=== PATIENT | male | born 1960 | race Caucasian/White ===

== ENCOUNTER 2019-11-04 11:38 | Outpatient (CLI) | payer OTHER, SELFPAY ==
--- NOTE | ~2019-11-04 | XR_ITS ---
EXAMINATION: XR ankle LT min 3V DATE: 11/04/2019 12:11 INDICATION: Left ankle pain TECHNIQUE: Anteroposterior, lateral, mortise, and additional oblique view of the ankle were obtained. COMPARISON: None. FINDINGS: Ankle soft tissue swelling is present. There is no fracture, dislocation, or subluxation. T he joint spaces are normal. IMPRESSION: 1. Soft tissue swelling without acute osseous abnormality. Reviewed, dictated and finalized at location A.
== END 2019-11-04 11:39 | disposition home or self-care (01) ==
LOC: ANHIMG 11:50
PROVIDERS: PCP Family Medicine Adolescent Medicine; Visit Provider Family Medicine Adolescent Medicine
DX: S99.912A Unspecified injury of left ankle, initial encounter (principal); X58.XXXA Exposure to other specified factors, initial encounter; M79.89 Other specified soft tissue disorders
CPT/HCPCS: 73610

== ENCOUNTER 2021-12-11 00:51 | Day surgery (SDC) | payer BC, SELFPAY ==
[2021-11-27 14:07] VITALS: BMI 25.9
--- NOTE | 2021-12-11 08:09 | WPDANESEPPF ---
Anes - Initial Pre Proc Eval Procedure: Operation Date: 12/11/21 08:30 Proposed Procedures p Screening Colonoscopy - Stan Montana MD Date/Time: 12/11/21 08:09 Surgeon: Stan Montana MD Pre Op Diagnosis: neoplasm screening Patient Data Age: 61 Gender: M Height: 1.78 m Weight: 80.8 kg Allergies Allergy/AdvReac Type Severity Reaction Status Date / Time erythromycin base Allergy Severe Hives Verified 12/11/21 07:44 Penicillins Allergy Severe Hives Verified 12/11/21 07:44 Home Medications Medication Instructions Recorded Confirmed Type cetirizine 10 mg tablet 10 mg PO DAILY 10/02/21 11/27/21 History Patient hx anesthesia problems: none Family hx anesthesia problems: none Results Review: All pre-operative results and documents have been reviewed as part of the pre-operative evaluation. FORMERLY [facility], [facility] Surgical History Surgical History (Updated 09/28/21 @ 12:49 by Thomas Shirley MD) History of inguinal hernia repair History of tonsillectomy and adenoidectomy Family History Family History (Updated 10/02/21 @ 08:54 by Martita Roland MA) Grandparent Acute myocardial infarction Mother Breast cancer Sibling Breast cancer Father Heart disease Social History Social History (Updated 10/02/21 @ 08:55 by Martita Roland MA) Smoking status: Never smoker Second hand tobacco smoke exposure: No Alcohol intake: current Drinks per week: 2 Alcohol use details: Occasionally Substance use: never Substance use type: does not use Living arrangements: with family Gender identity (if verbalized by the patient): Male Sexual Orientation (if Verbalized by the Patient): Straight or Heterosexual Spiritual care concerns: No Agree to blood products: Yes Anes - Eval Final PreProcedure Day of Procedure 12/11/21 08:09 Patient weight: normal Heart: regular rate and rhythm Lungs: clear to auscultation and normal air movement Airway: Mallampati scale class II Neurological: alert and oriented Last oral intake: >/= 8 hours ASA classification: I Emergent: no Anesthetic plan: proceed Anesthesia type and monitoring: general GIVS Results Review: All pre-operative results and documents have been reviewed as part of the pre-operative evaluation. Informed Consent: The patient's anesthetic plan and its attendant risks and benefits were discussed with the patient/family/POA. Questions were solicited and answers provided to the satisfaction of the patient/family/POA.
[2021-12-11] MEDS: LACTATED RINGERS 1,000 ML 150 ML IV CONT (08:14)
[2021-12-11 08:15] VITALS: BP 118/77; PULSE 59; RESP 18; TEMP 36.1; O2SAT 100
--- NOTE | 2021-12-11 08:15 | WPDGICN ---
Assessment and Plan Assessment and plan (1) Encounter for screening colonoscopy: Code(s): Z12.11 - Encounter for screening for malignant neoplasm of colon Status: Acute Assessment and Plan: Patient presents for screening colonoscopy. Appears to be at average risk for colon polyps. Further recommendations will be given after endoscopy. GI Consult Note Consult date/time: 12/11/21 08:15 Reason for consult: Neoplasia screening. HPI: Meng Diego is a 61 year old male Presents for screening colonoscopy. Patient's current weight appetite and bowel movements are normal. He denies abdominal pain. Patient has had no bleeding. Family history is noncontributory. Patient presents today for neoplasia screening colonoscopy. Review of Systems Review of Systems: Review of systems noncontributory. FORMERLY [facility] Surgical History Surgical History (Updated 09/28/21 @ 12:49 by Thomas Shirley MD) History of inguinal hernia repair History of tonsillectomy and adenoidectomy Family History Family History (Updated 10/02/21 @ 08:54 by Martita Roland MA) Grandparent Acute myocardial infarction Mother Breast cancer Sibling Breast cancer Father Heart disease Social History Social History (Updated 10/02/21 @ 08:55 by Martita Roland MA) Smoking status: Never smoker Second hand tobacco smoke exposure: No Alcohol intake: current Drinks per week: 2 Alcohol use details: Occasionally Substance use: never Substance use type: does not use Living arrangements: with family Gender identity (if verbalized by the patient): Male Sexual Orientation (if Verbalized by the Patient): Straight or Heterosexual Spiritual care concerns: No Agree to blood products: Yes Meds Home Medications and Allergies Home Medications Medication Instructions Recorded Confirmed Type cetirizine 10 mg tablet 10 mg PO DAILY 10/02/21 11/27/21 History Allergies Allergy/AdvReac Type Severity Reaction Status Date / Time erythromycin base Allergy Severe Hives Verified 12/11/21 07:44 Penicillins Allergy Severe Hives Verified 12/11/21 07:44 Exam Narrative: Physical exam reveals patient to be alert. Vital signs stable. HEENT exam is unremarkable. Patient is anicteric. Lungs are clear to auscultation and percussion. Heart is without murmur or extra sounds. Abdominal exam bowel sounds are present soft nontender with no organomegaly. Digital external rectal exam is normal.
[2021-12-11 08:41] VITALS: BP 99/61; PULSE 59; RESP 16; O2SAT 100
[2021-12-11 08:51] VITALS: BP 100/62; PULSE 62; RESP 16; O2SAT 99
[2021-12-11 09:01] VITALS: BP 108/74; PULSE 52; RESP 16; O2SAT 99
== END 2021-12-11 09:11 | disposition home or self-care (01) ==
PROVIDERS: PCP Family Medicine Adolescent Medicine; Visit Provider Internal Medicine Gastroenterology
PROC: 0DJD8ZZ Inspection of Lower Intestinal Tract, Via Natural or Artificial Opening Endoscopic (ICD-10-PCS; CPT 45378; principal; 2021-12-11 08:30)
DX: Z12.11 Encounter for screening for malignant neoplasm of colon (principal); K64.8 Other hemorrhoids
CPT/HCPCS: 45378; J2704; J7120